=== PATIENT | male | born 1955 | race Caucasian/White ===

== ENCOUNTER 2023-02-09 09:30 | Outpatient (REF) | payer MEDICARE, SELFPAY | END 2023-02-09 09:31 | disposition home or self-care (01) | LOC: HO.HOSX 09:30 | PROVIDERS: Visit Provider Orthopaedic Surgery | DX: M17.11 Unilateral primary osteoarthritis, right knee (principal) | CPT/HCPCS: 73562 ==

== ENCOUNTER 2023-02-09 09:46 | Outpatient (AMB) | payer BC, SELFPAY ==
--- NOTE | 2023-02-09 10:05 | A.OFFVIS_ITS ---
Intake Intake Visit Reasons: Right knee pain Intake Note: The patient is a 67-year-old white male who presents with complaints of progressively worsening right knee pain. He describes his pain as sharp and severe in nature. His pain has gotten worse over the last few years in spite of continued non operative treatments. He has had cortisone injections which gave him minimal relief. He also underwent right knee arthroscopic surgery [place] [address] Haider. The patient states that he got temporary relief from that procedure. He has had cortisone injections in the past which gave him minimal relief. He has also had viscosupplementation injections which gave him fairly good relief. He wishes to hold off on total knee replacement surgery for as long as possible. He has done physical therapy exercises which aggravated his pain. 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 Physical Exam Const Other: Well-nourished well-developed very friendly male awake alert and oriented x3 in no acute distress Extrem Other: Bilateral lower extremity examination shows good capillary refill, no skin lesions noted, normal sensation light touch Right knee examination shows a minimal effusion, palpable crepitus with range of motion, pain with range of motion, range of motion from -3 degrees to 115 degrees, no instability Results Reviewed Results Reviewed: X-rays of the patient's right knee show severe joint space narrowing, subchondral sclerosis, osteophyte formation, no acute bony abnormalities Assessment & Plan Assessment & Plan (1) Right knee pain: Code(s): M25.561 - Pain in right knee (2) Arthritis of right knee: Code(s): M17.11 - Unilateral primary osteoarthritis, right knee Plan Arash is a 67-year-old white male who presents with progressively worsening right knee pain due to severe degenerative joint disease. I had a lengthy discussion with the patient regarding the treatment options. He wishes to hold off on total knee replacement surgery for as long as possible. I agree with this plan. The patient has had cortisone injections in the past which gave him minimal relief. Thus, I will see whether or not his insurance company will cover a another series of viscosupplementation injections. I will see the patient back once the injections are available. If he fails continued non operative treatments we will further discuss the risks and benefits of right total knee replacement surgery. The patient will follow-up as instructed. I spent 22 minutes in reviewing the patient's records and imaging studies, seeing the patient and documenting in the medical record. Orders: Orders XR knee RT 3V 02/09/23 M25.561 - Pain in right knee Coding Level of Care Code New Pt Level 2 (69230) Diagnoses Right knee pain M25.561 Arthritis of right knee M17.11
== END 2023-02-09 10:33 | disposition home or self-care (01) ==
PROVIDERS: Visit Provider Orthopaedic Surgery
DX: M25.561 Pain in right knee (principal); M17.11 Unilateral primary osteoarthritis, right knee
CPT/HCPCS: 99202

== ENCOUNTER 2023-02-23 08:21 | Outpatient (AMB) | payer MEDICARE, SELFPAY ==
--- NOTE | 2023-02-23 08:22 | MHC.OFFVIS ---
Intake Intake Visit Reasons: O/V rt knee durolane gel injection Intake Note: Arash is a 67 year old male who presents today for a right knee durolane gel injection. He reports his right knee pain as sharp in nature. He has had cortisone injections in the past which gave him minimal relief. He would like to hold off on right total knee replacement surgery for as long as possible. 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 Physical Exam Const Other: Well-nourished well-developed very friendly male awake alert and oriented x3 in no acute distress Extrem Other: Bilateral lower extremity examination shows good capillary refill, no skin lesions noted, normal sensation light touch Right knee examination shows a minimal effusion, palpable crepitus with range of motion, pain with range of motion, range of motion from -3 degrees to 115 degrees, no instability Office Procedures Joint Injection/Drain Joint Injection/Drain Primary Site: right knee Prep: site was prepped using aseptic technique Injected: 60 mg of (Durolane) and 1% plain lidocaine Procedure: The patient tolerated the procedure well Coding 59406 - Large joint Procedure code (CPT) selection complete Results Reviewed Results Reviewed: X-rays of the patient's right knee show joint space narrowing, subchondral sclerosis, no acute bony abnormalities Assessment & Plan Assessment & Plan (1) Arthritis of right knee: Code(s): M17.11 - Unilateral primary osteoarthritis, right knee Plan Mr. Landa presents with right knee pain due to degenerative joint disease. I had a lengthy discussion with the patient regarding the treatment options. The patient wishes to hold off on right total knee replacement surgery for as long as possible. I agree with this plan. The risks and benefits of a right knee Durolane viscosupplementation injection were discussed at length with the patient. The patient wished to proceed. He tolerated the injection well. He will continue with his activities as tolerated. He will follow up with me on an as-needed basis should his symptoms not plateau at an unacceptable level over the next few months. Feel free to call me at any time should questions regarding his orthopedic management arise. I spent 22 minutes in reviewing the patient's records and imaging studies, seeing the patient and documenting in the medical record. Orders: Orders AMB Joint Injection/Aspiration Today M17.11 - Unilateral primary osteoarthritis, right knee Coding Level of Care Code Est Pt Level 2 (57515) Diagnoses Arthritis of right knee M17.11 CPT Codes Coding - 32432 Large joint: 73918 - Large joint ([id number])
== END 2023-02-23 08:44 | disposition home or self-care (01) ==
PROVIDERS: Visit Provider Orthopaedic Surgery
DX: M17.11 Unilateral primary osteoarthritis, right knee (principal)
CPT/HCPCS: 20610

== ENCOUNTER → 2023-02-23 08:21 | Outpatient (BNVA) | payer MEDICARE, SELFPAY | PROVIDERS: Visit Provider Orthopaedic Surgery | DX: M17.11 Unilateral primary osteoarthritis, right knee (principal) | CPT/HCPCS: 20610; J7318 ==

== ENCOUNTER → 2023-06-20 11:07 | Outpatient (BNVA) | payer MEDICARE, SELFPAY | PROVIDERS: PCP Family Medicine; Visit Provider Orthopaedic Surgery ==

== ENCOUNTER 2023-07-20 10:07 | Outpatient (AMB) | payer MEDICARE, SELFPAY ==
--- NOTE | 2023-07-20 10:08 | MHC.OFFVIS ---
Vital Signs 07/20/23 10:13 Height 5 ft 11 in Weight 188 lb BMI 26.2 Intake Visit Reasons: Pre-Rt TKA 07/31/23 Intake Note: Arash is a 68-year-old white male who presents with complaints of progressively worsening right knee pain. He describes his pain as sharp and severe in nature. His pain has gotten worse over the last few years in spite of continued non operative treatments. He has had cortisone injections which gave him minimal relief. He also underwent right knee arthroscopic surgery in [address] Haider. The patient states that he got temporary relief from that procedure. He has had cortisone injections in the past which gave him minimal relief. He has also had viscosupplementation injections which gave him temporary good relief. He has done physical therapy exercises which aggravated his pain. The patient has difficulty walking even short distances because of his pain. At this point his right knee pain is interfering with his activities of daily living and his ability to sleep well through the night. Allergies No Known Allergies Allergy (Verified 07/20/23 10:11) Medication List - Last Reconciled 07/21/23 by Jose Antonio Acuna MD acetaminophen (Tylenol Extra Strength) 500 mg PO Q6H PRN lisinopril-hydrochlorothiazide 20-12.5 mg 1 tab PO BEDTIME PFSH Medical History Seborrheic dermatitis Osteoarthritis Lipoma of torso HTN (hypertension) Actinic keratoses Surgical History Hx of right knee surgery (~1999) Social History Household Members: Spouse Housing: House Alcohol intake: current Alcohol intake frequency: a few times a month Alcohol type: beer Patient Tobacco Use Status: Never used Tobacco Substance Use Type: Marijuana Current occupational status: employed 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 Physical Exam Vital Signs: BMI result Body Mass Index 26.2 Const Other: Well-nourished well-developed very friendly male awake alert and oriented x3 in no acute distress Extrem Other: Right knee examination shows a minimal effusion, palpable crepitus with range of motion, pain with range of motion, range of motion from -3 degrees to 115 degrees, no instability Results Reviewed Results Reviewed: X-rays of the patient's right knee show end-stage degenerative joint disease with grade 4 [id number] arthritis, subchondral sclerosis, osteophyte formation, no acute bony abnormalities Assessment & Plan Assessment & Plan (1) Arthritis of right knee: Code(s): M17.11 - Unilateral primary osteoarthritis, right knee Category: Medical Plan Mr. Landa presents with progressively worsening right knee pain due to end-stage degenerative joint disease. I had a lengthy discussion with the patient regarding the treatment options. At this point he has failed continued non operative treatments. The risks and benefits of right total knee replacement surgery were discussed at length with the patient. The patient wishes to proceed with surgery. nutrition services associate will be consulted following his surgery for home physical therapy and nursing. The patient will follow-up as instructed. Feel free to call me at any time should questions regarding his orthopedic management arise. I spent 21 minutes in reviewing the patient's records and imaging studies, seeing the patient and documenting in the medical record. Coding Level of Care Code Est Pt Level 3 (30059) Diagnoses Arthritis of right knee M17.11
[2023-07-20 10:13] VITALS: BMI 26.2
== END 2023-07-20 10:27 | disposition home or self-care (01) ==
PROVIDERS: PCP Family Medicine; Visit Provider Orthopaedic Surgery
DX: M17.11 Unilateral primary osteoarthritis, right knee (principal)
CPT/HCPCS: 99214

== ENCOUNTER → 2023-07-20 10:07 | Outpatient (BNVA) | payer MEDICARE, SELFPAY | PROVIDERS: PCP Family Medicine; Visit Provider Orthopaedic Surgery | DX: M17.11 Unilateral primary osteoarthritis, right knee (principal) | CPT/HCPCS: 99212 ==

== ENCOUNTER 2023-07-31 06:49 | Day surgery (SDC) | payer MEDICARE, SELFPAY ==
[2023-07-24 12:22] VITALS: BP 165/91; PULSE 79; RESP 16; O2SAT 98; BMI 25.7
[2023-07-24 14:42] LABS: MRSA Nasal PCR NEGATIVE (Negative); SA Nasal PCR POSITIVE (Negative)
[2023-07-31] VITALS (15 sets, daily range): BP systolic 96–151; BP diastolic 52–77; PULSE 62–88; RESP 15–18; TEMP 35.9–36.3; O2SAT 92–98; BMI 24.8; BMI 24.9
[2023-07-31] MEDS: Lactated Ringers 1,000 ML 100 ML IVCONT ×3 (07:51→23:39)
[2023-07-31] MEDS: vancomycin HCL 1,500 MG in 0.9 % Sodium Chloride 500 ML 333.33 MG IV ×2 (08:23→21:17)
--- NOTE | 2023-07-31 09:05 | HO.ANESPROP2 ---
Documented by User: Nikia Valenzuela NP 07/27/23 15:24 HPI - Anesthesia Eval Consult details Narrative: 68yo M for Right Knee Replacement Total, 07/31/23 Medically cleared by [facility] No recent illness No CP/SOB with minimal walking. Limitation r/t pain Initial BP at PAT elevated at 190/90. Retake 160/90. Per patient, BP usually up at MD appointments. Encouraged patient to monitor BP outside of medical setting, bring log DOS, and discuss with PCP. PMF Active Problems Active Problems: All Active Problems Arthritis of right knee (Acute) Right knee pain (Acute) Past Medical History Medical History Seborrheic dermatitis Osteoarthritis Lipoma of torso HTN (hypertension) Actinic keratoses Surgical History Surgical History Hx of right knee surgery (~1999) Social History Social History Household Members: Spouse Housing: House Are you a primary aged or disabled carer to a significant other at home: No Do you presently have visiting nurse or other home services: No Alcohol intake: current Alcohol intake frequency: a few times a month Alcohol type: beer Patient Tobacco Use Status: Never used Tobacco Use of substances other than those prescribed or required for medical reasons: Yes Substance Use Type: Marijuana Substance Use Frequency: Daily Have you been hit, kicked, punched, or otherwise hurt by someone within the past year? If so, by whom?: No Are you DNR?: No Advance Directives: No Advance Directives Information Provided: Yes Advance Directives on File: No Recently lost weight without trying: No Nutrition Risks: No Nutritional Risk Poor oral hygiene: No Current occupational status: employed Current occupation: [employer] Allergies Allergy/AdvReac Type Severity Reaction Status Date / Time No Known Allergies Allergy Verified 07/31/23 07:10 Home Medications ?Medication ?Instructions ?Recorded ?Confirmed ?Last Taken ?Type acetaminophen 500 mg tablet 1,500 mg PO DAILY 06/20/23 07/24/23 07/30/23 History (Tylenol Extra Strength) lisinopril 20 1 tab PO BEDTIME 04/30/24 06/03/24 06/09/24 History mg-hydrochlorothiazide 12.5 mg tablet Exam Height,Weight and Vital Signs: Height 5 ft 11 in Weight 83.461 kg Last Vital Signs Pulse 79 07/24/23 12:22 Resp 16 07/24/23 12:22 BP 190/90 H 07/24/23 12:22 Pulse Ox 98 07/24/23 12:22 O2 Del Method Room Air 07/24/23 12:22 Pertinent Lab Results Pertinent Lab Results: CBC, BMP, A1C from outside facility 06/2023 WNL Narrative Narrative: EKG 06/2023 NSR @ 72 Airway Mallampati Class: III TM Dist: >3cm Neck ROM: Full Loose/Missing/Broken Teeth: Yes (possible broken right lower molar, ) Heart: RRR Lungs: CTAB Assessment and Plan Assessment Anesthesia Assessment: Anesthesia Plan Discussed and PAT Visit Documented by User: Donna Morrison DO 07/31/23 10:39 [facility] Past Medical History Medical History Seborrheic dermatitis Osteoarthritis Lipoma of torso HTN (hypertension) Actinic keratoses Family History Family history of problems with anesthesia: No Surgical History Surgical History Hx of right knee surgery (~1999) History of Problems with Anesthesia: No Social History Social History Household Members: Spouse Housing: House Are you a primary aged or disabled carer to a significant other at home: No Do you presently have visiting nurse or other home services: No Alcohol intake: current Alcohol intake frequency: a few times a month Alcohol type: beer Patient Tobacco Use Status: Never used Tobacco Use of substances other than those prescribed or required for medical reasons: Yes Substance Use Type: Marijuana Substance Use Frequency: Daily Have you been hit, kicked, punched, or otherwise hurt by someone within the past year? 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 Meds Allergies Allergy/AdvReac Type Severity Reaction Status Date / Time No Known Allergies Allergy Verified 07/31/23 07:10 Home Medications ?Medication ?Instructions ?Recorded ?Confirmed ?Last Taken ?Type acetaminophen 500 mg tablet 1,500 mg PO DAILY 06/20/23 07/24/23 07/30/23 History (Tylenol Extra Strength) lisinopril 20 1 tab PO BEDTIME 06/20/23 07/24/23 07/30/23 History mg-hydrochlorothiazide 12.5 mg tablet Exam Exam Date and Time: July 31, 2023900 Height,Weight and Vital Signs: Height 5 ft 11 in Weight 83.461 kg Last Vital Signs Pulse 79 07/24/23 12:22 Resp 16 07/24/23 12:22 BP 190/90 H 07/24/23 12:22 Pulse Ox 98 07/24/23 12:22 O2 Del Method Room Air 07/24/23 12:22 Height 5 ft 11 in Weight 80.649 kg Vital Signs Pulse Rate 79 07/24/23 12:22 Respiratory Rate 16 07/24/23 12:22 Blood Pressure 165/91 H 07/24/23 12:22 Pulse Oximetry 98 07/24/23 12:22 Oxygen Delivery Method Room Air 07/24/23 12:22 Temperature 97.3 F 07/31/23 07:15 Pulse Rate 74 07/31/23 07:15 Respiratory Rate 15 07/31/23 07:15 Blood Pressure 147/77 H 07/31/23 07:15 Pulse Oximetry 98 07/31/23 07:15 Oxygen Delivery Method Room Air 07/31/23 07:15 Airway Mallampati Class: II TM Dist: >3cm Neck ROM: Full Loose/Missing/Broken Teeth: Yes (broken right lower molar) Heart: S1S2 Assessment and Plan Assessment Anesthesia Assessment: Anesthesia Plan Discussed and Chart Reviewed Final Anesthetic Review Family History of Problems with Anesthesia: No History of Problems with Anesthesia: No NPO: Yes ASA Class: II Final Preanesthetic Review: No Changes in Pt Med Stat, Meds/Allgs Chart Reviewed, Consent Obtained/Reviewed and Anes Risks/Benef Reviewed Patient Risk: Low Procedure Risk: Intermediate Anesthetic Plan Anesthetic Plan: Spinal, Regional Block (right adductor canal and right ipack blocks) and Agree w/ Assess. and Plan Disposition: Standard PACU
--- NOTE | 2023-07-31 11:57 | PHA.MEDREC ---
Pharmacy Consult ? Medication Reconciliation Pharmacy has completed the medication reconciliation. reviewed med rec done by nursing.
--- NOTE | 2023-07-31 12:49 | PM.OP ---
Brief Operative Note Date of Service: 07/31/23 Pre-op diagnosis: Right knee degenerative joint disease Post-op diagnosis: same Procedure: Right total knee arthroplasty Implants: [place] [employer] cemented posterior stabilized total knee arthroplasty with a femoral component size 5 right, tibial component size 5, polyethylene liner size 5 with 13 mm of thickness, an asymmetric patellar component size 32 with 10 mm of thickness Surgeon: Jose Antonio Acuna MD Anesthesia: regional and spinal Was an Vice President Talent Management used for this Procedure?: Yes Vice President Talent Management: Hannah Miles Estimated blood loss (mL): 200 Pathology: other (Bony fragments from the right femur, tibia and patella) Condition: stable Disposition: PACU
--- NOTE | 2023-07-31 12:51 | P.OP_ITS ---
Operative Note Operative Note Date of Service: 07/31/23 Narrative: After the patient was identified as Arash Landa and his right knee was initialed by myself the patient was brought to the holding area where a right leg nerve block was performed by the anesthesiologist in routine fashion. The patient was then brought to the operating room where conscious sedation and spinal anesthesia were performed by the anesthesiologist in routine fashion. Because of the patient's history of seborrheic dermatitis he was given both IV Ancef and IV vancomycin preoperatively for infection prophylaxis. The patient's right lower extremity was prepped and draped in sterile fashion. A formal time- out was completed. The patient's right knee was placed onto a small bump to produce 30? of knee flexion during exposure. A #10 scalpel blade was used to make a midline incision extending 1 handbreadth proximal and distal to the patella. A second #10 scalpel blade was used to dissect the subcutaneous tissues down to the extensor mechanism. The subcutaneous flaps were maintained as thick as possible. A medial parapatellar arthrotomy was then performed using a #10 scalpel blade. The arthrotomy was begun just medial to the patellar tendon. The arthrotomy was continued 1 cm medial to the patella and then 5 mm into the medial aspect of the quadriceps tendon. The infrapatellar fat pad was partially excised to help with exposure. The soft tissue retinaculum was raised one-half of the way around the medial aspect of the proximal tibia. The patella was everted and the knee was flexed to 90?. There was no injury to the patellar tendon or its insertion onto the tibial tubercle. A drill bit was introduced into the distal aspect of the femur with a starting point 1 cm anterior to the origin of the posterior cruciate ligament. The intramedullary alignment dany was put into place. The distal alignment guide was set for a 5 degree valgus cut. The distal cutting block was put into place and was held with 4 pins. The intramedullary alignment dany was removed. Soft tissues were retracted in the distal femoral cut was made using a sagittal saw. The distal aspect of the femur measured to be a size 5 right component. Two drill holes were placed into the distal aspect of the femur marking 3? of external rotation. The distal cutting block was impacted into place and was held with 2 pins. Soft tissues were retracted and the 4 distal femoral cuts were made using a sagittal saw. Final notching and drilling of the distal aspect of the femur were performed in routine fashion. The trial femoral component was impacted into place. The knee was taken through a full range of motion. The patella tracked well. The patella was everted and the knee was flexed to 90?. The trial component was removed and our attention was directed to the proximal tibia. The medial and lateral menisci were removed using a #10 scalpel blade. A small rim of the medial meniscus was left intact to help prevent injury to the medial collateral ligament. A drill bit was then introduced into the proximal tibia with a starting point midway from medial to lateral and one-third of the way posteriorly. The intramedullary alignment dany was put into place. The proximal tibial cutting guide was placed over the alignment dany in line with the 2nd toe. The guide was held in place using 3 pins. The intramedullary alignment dany was removed. Soft tissues were retracted and the proximal tibial cut was made using a sagittal saw. The proximal tibia measured to be a size 5 component. The tibial tray was put into place with a 13 mm liner. The femoral component was impacted into place. The knee was taken through a full range of motion. There was full flexion and full extension. There was no instability with varus or valgus stress testing with the knee in flexion or extension. The patella tracked well with no medially directed force. The rotation of the tibial tray was marked using electrocautery with the knee in extension. The patella was everted and the knee was flexed to 90?. All trial components were removed. The tibial tray was placed onto the proximal tibia in line with the electrocautery neo. The tray was held in place using 3 pins. Final broaching of the proximal tibia was performed in routine fashion. The trial liner and trial femoral component were put into place. The knee was brought into extension and our attention was directed to the patella. The patella measured 25 mm in thickness. The patellar resection guide was set for a 10 mm resection. Soft tissues were retracted and the patella cut was made using a sagittal saw. The remaining patella measured 15 mm in thickness. The undersurface of the patella was measured to be a size 32 asymmetric component. Three drill holes were placed into the undersurface of the patella in routine fashion. The trial component was put into place. The knee was taken through a full range of motion. The patella tracked well. The patella was everted and the knee was flexed to 90?. All trial components were removed. The knee was once again brought into extension and placed onto a small bump. The knee joint was irrigated with copious amounts of normal saline solution via pulse lavage while the cement was mixed. The patella was everted and the knee was flexed to 90?. A small amount of cement was placed along the posterior aspects of the tibial and femoral components. Cement was then pressurized into the proximal tibia. The tibial component was impacted into place. Any excess cement was removed. The polyethylene liner was then impacted into place. Cement was then pressurized into the distal aspect of the femur. A small amount of cement was placed into the intramedullary canal to help reduce bleeding. The femoral component was impacted into place. Any excess cement was removed. The knee was then brought into extension. Cement was pressurized into the undersurface of the patella. The patellar component was put into place and was held with a patella clamp. Any excess cement was removed. Once the cement had hardened the patellar clamp was removed. The knee was taken through a full range of motion. There was full flexion and extension. There was no instability with varus or valgus stress testing with the knee in flexion or extension. The patella tracked well with no medially directed force. The knee joint was irrigated with copious amounts of normal saline solution via pulse lavage. Any significant bleeding vessels were coagulated. The patient's right knee was placed onto a small bump. The arthrotomy was closed with #2 Ethibond [id number] interrupted suture as well as #1 Vicryl [id number] interrupted suture. The wound was once again irrigated. The subcutaneous tissues were closed with 0 Vicryl and 2-0 Vicryl interrupted sutures. The skin was closed with skin mariella. Dry sterile dressing and Eddie bandages were placed over the patient's right knee. The patient was awake and alert. The patient was transferred to the recovery room in stable condition.
[2023-07-31] MEDS: methocarbamoL 500 MG TABLET PO ×2 (14:35→21:17)
[2023-07-31] MEDS: Celecoxib 200 MG CAPSULE PO ×2 (14:35→21:17)
[2023-07-31] MEDS: oxyCODONE HCl ER 10 MG TAB.ER.12H PO ×2 (14:35→21:18)
[2023-07-31] MEDS: oxyCODONE HCl Immed Release 5 MG TABLET 10 MG PO (14:59)
[2023-07-31] MEDS: Acetaminophen 325 MG TABLET 650 MG PO (14:59)
[2023-07-31] MEDS: 0.9 % Sodium Chloride Flush 3 ML SYRINGE IVFLUSH (15:54)
[2023-07-31] MEDS: ceFAZolin Sodium/Dextrose,Iso 2 GM/50 ML PIGGYBACK IV (15:54)
[2023-07-31] MEDS: Aspirin 325 MG TABLET PO ×2 (17:48→21:16)
[2023-07-31] MEDS: lisinopriL 20 MG TABLET PO (21:16)
[2023-07-31] MEDS: hydroCHLOROthiazide 12.5 MG TABLET PO (21:17)
[2023-07-31] MEDS: Gabapentin 100 MG CAPSULE PO (21:17)
[2023-08-01] MEDS: ceFAZolin Sodium/Dextrose,Iso 2 GM/50 ML PIGGYBACK IV ×2 (00:42→08:15)
[2023-08-01 03:38] VITALS: BP 110/65; PULSE 72; RESP 16; TEMP 36.4; O2SAT 95
[2023-08-01 06:08] LABS: MANUAL DIFF FLAG NO
[2023-08-01 06:27] LABS: Anion Gap 12 (12-20); Blood Urea Nitrogen 19 mg/dL (9-16); Carbon Dioxide 24 mmol/L (22-29); Chloride 106 mmol/L (96-108); Creatinine Clr Calc Pharmacy 75.7; Estimated Glomerular Filt Rate > 60; Glucose Fasting 128 mg/dL (60-99); Potassium 4.1 mmol/L (3.3-5.1); Sodium 138 mmol/L (135-145)
[2023-08-01 06:28] LABS: Basophils Percent Auto 0.1 % (0-2); Hematocrit 37.8 % (42.0-52.0); Hemoglobin 13.2 g/dl (14.0-18.0); Imm Gran Abs Auto 0.11 X10*3/uL (0.00-0.03); Imm Gran Pct Auto 0.8 % (0.0-0.4); Lymphocytes Percent Auto 6.8 % (20-40); Mean Corpuscular HGB Conc 34.9 g/dl (31.0-36.0); Mean Corpuscular Hemoglobin 35.3 pg (27.0-33.0); Mean Corpuscular Volume 101.1 fL (80.0-98.0); Mean Platelet Volume 9.1 fL (9.4-12.4); Monocytes Absolute Auto 0.7 X10*3/uL (0.1-1.2); Neutrophils Absolute Auto 12.6 x10*3/uL (2.0-8.3); Neutrophils Percent Auto 87.3 % (45-73); Platelet Count 236 X10*3/uL (160-400); Red Blood Count 3.74 X10*6/uL (4.60-5.80); Red Cell Distribution Width 12.4 % (11.0-16.0); White Blood Count 14.5 X10*3/uL (4.8-10.8)
[2023-08-01 07:15] VITALS: BP 140/67; PULSE 73; RESP 18; TEMP 36; O2SAT 97
--- NOTE | 2023-08-01 07:51 | PM.DS ---
DS: Providers Provider Date of Service: 08/01/23 Primary care physician: Franki Gutiérrez MD DS: Transfer Hospital Acceptance Reason for Transfer: The patient underwent a successful Right total knee arthroplasty on 07/31/[address] Acuna, was transferred to PACU and then to the floor to recover. During their stay, their vitals were stable, afebrile at 96.8. Labs were unremarkable, H/H 13.2/37.8. POD 1 he was started on ASA 325mg tabs po bid for DVT ppx, they also received Physical Therapy services twice a day. Physical therapy should include gait training, ROM to tolerance and quad strength. He is WBAT. Prior to discharge, his dressing was clean dry and intact. The Aquacel dressing should remain intact and dry at all times. Any concerns with the dressing, please contact orthopedic office. No showering. The plan is to be discharged home with vna DS: Summary Time Attestation Discharge Coordination Time (in mins): 30 Quality: Safe Use of Opioids Does Pt have an Active Cancer Diagnosis on the Problem List?: No Quality: Stroke Does the patient have a stroke diagnosis?: No Physical Exam Vital Signs: Vital Signs: Last Vital Signs Temp 96.8 F 08/01/23 07:15 Pulse 73 08/01/23 07:15 Resp 18 08/01/23 07:15 BP 140/67 H 08/01/23 07:15 Pulse Ox 97 08/01/23 07:15 O2 Del Method Room Air 08/01/23 07:15 BMI result Body Mass Index 24.9 Const: General: cooperative, healthy appearing and no acute distress Resp: Effort & Inspection: normal respiratory effort and able to speak in complete sentences Cardio: Rate: regular rate Peripheral pulses: Peripheral pulses 2+ throughout GI: Palpation (GI): Soft to palpation Skin: General skin exam: no rashes or lesions noted Extrem: Other: bandage clean dry and intact. Denys intact. No erythema or joint effusion. Calf supple nontender. Neurovascularly intact. DS: Data Data Completed and Pending Pending studies at discharge: Pending at discharge 07/31/23 10:42 Surgical [PTH] Routine Labs on day of discharge: Laboratory Results - last 24 hr 08/01/23 05:32 WBC 14.5 H RBC 3.74 L Hgb 13.2 L Hct 37.8 L MCV 101.1 H MCH 35.3 H MCHC 34.9 RDW 12.4 Plt Count 236 MPV 9.1 L Immature Gran % (Auto) 0.8 H Neut % (Auto) 87.3 H Lymph % (Auto) 6.8 L Trinity % (Auto) 5.0 Eos % (Auto) 0.0 Baso % (Auto) 0.1 Lymph # (Auto) 1.0 L Trinity # (Auto) 0.7 Eos # (Auto) 0.0 Baso # (Auto) 0.0 Abs Immat Gran (auto) 0.11 H Absolute Neuts (auto) 12.6 H Absolute Nucleated RBC 0.000 Nucleated RBC % (auto) 0.0 Sodium 138 Potassium 4.1 Chloride 106 Carbon Dioxide 24 Anion Gap 12 BUN 19 H Creatinine 0.98 Estim Creat Clear Calc 75.7 Estimated GFR > 60 Fasting Glucose 128 H Calcium 9.0 Discharge Plan Discharge Patient Disposition: Home, Self-Care Referrals: Hannah Miles PA-C [Physician Marketing Support Manager] - 2 Weeks (08/17/23 10:15 [facility] Hannah Miles PA-C) Discharge Medications: New methocarbamol 500 mg Tablet 500 mg PO TID 7 Days Qty: 21 0RF celecoxib 200 mg Capsule 200 mg PO BID 30 Days Qty: 60 0RF sennosides [Senna Lax] 8.6 mg Tablet 17.2 mg PO BEDTIME PRN (Reason: Constipation) 14 Days Qty: 14 0RF acetaminophen 325 mg Tablet 650 mg PO Q6H PRN (Reason: Pain, Mild (Pain Scale 1-3)) 30 Days Qty: 240 0RF aspirin 325 mg Tablet 325 mg PO BID 30 Days Qty: 60 0RF gabapentin 100 mg Capsule 100 mg PO BEDTIME 7 Days Qty: 7 0RF oxycodone 5 mg Tablet 5 mg PO Q4H PRN (Reason: Pain, Moderate(Pain Scale 4-6)) 7 Days Qty: 42 0RF Rx Instructions: Partial Fill upon patient request. Continued (DME) raymundo Ok [facility] [place] [facility] See Rx Instructions .ROUTE .MEDSUPPLY Qty: 1 0RF Rx Instructions: Folding front wheeled walker lisinopril-hydrochlorothiazide 20-12.5 mg tablet 1 tab PO BEDTIME acetaminophen [Tylenol Extra Strength] 500 mg tablet 1,500 mg PO DAILY Discharge Orders: Discharge Order (Routine); Ordered 08/01/23 Ordered By: Celia Molina Diet: Regular diet Activity on Discharge: Use cane or walker Activity Restrictions/Additional Instructions: Physical Therapy for Total knee arthroplasty: WBAT, gait training, ROM 0-12, quad strength Limit stair climbing No showering, no tub bath-keep dressing clean, dry and intact No driving x6 weeks Continue Aspirin twice a day x 6 weeks Follow up with [facility] in 2 weeks: Print Language: Mozambican
[2023-08-01] MEDS: 0.9 % Sodium Chloride Flush 3 ML SYRINGE IVFLUSH (08:14)
[2023-08-01] MEDS: Aspirin 325 MG TABLET PO (08:15)
[2023-08-01] MEDS: oxyCODONE HCl ER 10 MG TAB.ER.12H PO (08:16)
[2023-08-01] MEDS: Celecoxib 200 MG CAPSULE PO (08:16)
[2023-08-01] MEDS: methocarbamoL 500 MG TABLET PO (08:16)
--- NOTE | 2023-08-01 08:29 | HO.POSTANES ---
Post Anesthesia Evaluation Post Anesthesia Evaluation Date of Service: 08/01/23 Vital Signs: Vital Signs Temp Pulse Resp BP Pulse Ox O2 Del Method 08/01/23 07:15 96.8 F 73 18 140/67 H 97 Room Air 08/01/23 03:38 97.6 F 72 16 110/65 95 Room Air 07/31/23 21:17 151/73 H 07/31/23 21:16 151/73 H Anesthesia: General LMA Mental Status: Awake Pain Control: Satisfactory Nausea/Vomiting: None Hydration: Adequate Anesthesia-Related Issues: No Anes. Related Issues
--- NOTE | 2023-08-01 09:40 | P.F2F_ITS ---
Service Date Service Date: 08/01/23 Encounter Date of encounter: 08/01/23 Reasons for Services Signs and symptoms assessed: Weakness, poor balance, poor gait mechanics Reason for physical therapy: home safety and mobility, therapeutic exercises, restore joint function, gait/transfer training, ADL training and energy conservation Reason for occupational therapy: home safety and mobility, therapeutic exercises, restore joint function, gait/transfer training, ADL training and energy conservation Homebound: Leaving the home is medically contraindicated at this time without the asist of a device and/or another person due th the listed conditions above and below. Reason homebound: unsteady gait / fall risk, pain with ambulation, poor balance / fall risk and unable to drive Homebound supporting statement: Pt. is considered home bound due to recent surgery. Unable to drive, poor balance, poor gait mechanics. Certification: Based on the above findings, I certify that this patient is confined to the home and needs intermittent retirement care, physical therapy and/or speech therapy, or continues to need occupational therapy. The patient is under my care, and I have initiated the establishment of the plan of care. The patient will be followed by a physician who will periodically review the plan of care. Time Spent With Patient Time: Total time managing care of this patient today ____ minutes.
[2023-08-01] MEDS: Lactated Ringers 1,000 ML 100 ML IVCONT (09:45)
[2023-08-01 10:03] VITALS: BP 140/67; PULSE 73; O2SAT 97
--- NOTE | 2023-08-01 10:32 | MHC.CM.PN ---
Addendum entered by Mariluz Parham 08/01/23 10:39: VNA services set up by Ortho Nurse Navigator. Original Note: IMM 08/01/23 DX OA S/P Surgical intervention. He lives with family He is independent with all functional mobility. He is discharged to home today. Demond MASSEY will provide home services. Patient has arranged for transportation home.
[2023-08-01 11:35] VITALS: BP 140/67; PULSE 73; O2SAT 97
--- NOTE | 2023-08-01 12:29 | PC.NURSE ---
Clarified discharge with KEIKO Lyn,patient can be discharged
[2023-08-01] MEDS: oxyCODONE HCl Immed Release 5 MG TABLET 10 MG PO (12:48)
== END 2023-08-01 14:03 | disposition home health service (06) ==
LOC: HO.SSS 06:50 → HO.S3 11:27
PROVIDERS: Physician Assistant; PCP Family Medicine; Visit Provider Orthopaedic Surgery
PROC: (CPT 27447; principal; 2023-07-31 10:00)
DX: M17.11 Unilateral primary osteoarthritis, right knee (principal); I10 Essential (primary) hypertension; Z79.899 Other long term (current) drug therapy
CPT/HCPCS: 27447; 36415; 80048; 85025; 86850; 86900; 86901; 87640; 87641; 88305; 88311; 97110; 97116; 97161; C1776; J0131; J0665; J0690; J1100; J2250; J2371; J2704; J2795; J3010; J3370; J3371; J7120

== ENCOUNTER → 2023-07-31 06:49 | Outpatient (BNV) | payer MEDICARE, SELFPAY | PROVIDERS: PCP Family Medicine; Visit Provider Orthopaedic Surgery | DX: Z47.1 Aftercare following joint replacement surgery (principal); Z96.651 Presence of right artificial knee joint | CPT/HCPCS: 27447; 99024; G0180 ==

== ENCOUNTER 2023-08-17 09:45 | Outpatient (REF) | payer MEDICARE, SELFPAY ==
--- NOTE | ~2023-08-17 | XR_ITS ---
EXAMINATION: XR KNEE, RIGHT CLINICAL INFORMATION: Pain in unspecified knee. COMPARISON: 02/09/2023. TECHNIQUE: AP standing view as well as lateral and sunrise views of the right knee. FINDINGS: Status post interval right knee total arthroplasty with expected postsurgical changes including anterior mariella, soft tissue swelling and joint effusion. Hardware appears intact. AP standing view of the left knee demonstrates diffuse demineralization with moderate narrowing of the medial compartment and small marginal osteophytes. XR/XR knee RT 3V IMPRESSION: Status post interval right knee total arthroplasty with expected postsurgical changes.
== END 2023-08-17 09:46 | disposition home or self-care (01) ==
LOC: HO.HOSX 09:45
PROVIDERS: Visit Provider Physician Assistant
DX: M25.561 Pain in right knee (principal); Z47.1 Aftercare following joint replacement surgery; Z96.651 Presence of right artificial knee joint
CPT/HCPCS: 73562; 99212

== ENCOUNTER 2023-08-17 10:04 | Outpatient (AMB) | payer MEDICARE, SELFPAY ==
--- NOTE | 2023-08-17 10:30 | MHC.OFFVIS ---
Intake Visit Reasons: PO-Rt TKA 07/31/23 Intake Note: Arash is a 68 year old male who presents today for a post op appointment s/p Rt TKA 07/31/23 Patient reports that he is doing well. denys removed & steri strips applied Allergies No Known Allergies Allergy (Verified 08/17/23 10:30) HPI HPI PO-Rt TKA 07/31/23 DR: Details: 68-year-old male who presents in the office today 17 days status post right total knee arthroplasty, which was performed on 07/31/[address] Acuna. ? ? While in the office today, the patient reports he is doing well. ? 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 [place] are intact. No surrounding erythema or drainage. No signs of infection. ROM is 0-90 degrees. NVI.? Assessment & Plan Assessment & Plan (1) Status post right knee replacement: Onset Date: ~07/31/23 Comment: Dr. Acuna Code(s): Z96.651 - Presence of right artificial knee joint Category: Surgical Plan Mr. Landa is a 68-year-old male who presents in the office today 17 days status post right total knee arthroplasty, which was performed on 07/31/[address] Acuna. ? ? While in the office today, the patient reports he is doing well.? ? Denys were removed and steri-stripes were applied. I sent a prescription for an antibiotic prophylactically for possible dental work in the future. However, the patient was educated they should not have any major dental work for the first 3 months post op after a right total knee arthroplasty.?Follow-up will be in [address] Acuna, or sooner if needed.? ? X-rays of the right knee which were obtained while in the office today and were reviewed by me, Hannah Miles PA-C, revealed intact orthopedic hardware with routine healing. Orders: Orders XR knee RT 3V Today M25.569 - Pain in unspecified knee Medications: New amoxicillin 2,000 mg (4 x 500 mg) PO ONCE 4 tabs 0RF take 4 tabs by mouth 1 hour prior to dental ppx 1 day Patient Instructions: Scribed by Christen Barbosa medical authorization specialist, for Hannah Miles PA-C on 08/17/2023 at 10:04 am, EST.? Coding Level of Care Code Global (82455) Diagnoses Status post right knee replacement Z96.651
== END 2023-08-17 11:19 | disposition home or self-care (01) ==
LOC: HO.HOS 10:04
PROVIDERS: PCP Family Medicine; Visit Provider Physician Assistant
DX: Z96.651 Presence of right artificial knee joint (principal)
CPT/HCPCS: 99024

== ENCOUNTER 2023-09-12 09:14 | Outpatient (AMB) | payer MEDICARE, SELFPAY ==
--- NOTE | 2023-09-12 09:18 | A.OFFVIS_ITS ---
Intake Visit Reasons: PO-Rt TKA 07/31/23 Intake Note: Arash is a 68 year old male who presents with complaints of mild intermittent discomfort in his right knee after undergoing right total knee replacement surgery on 07/31/2023. The patient has recently begun physical therapy at [facility]. He denies any fevers or chills. He does walk with a cane when he is out of his home. He takes Tylenol as needed for his discomfort. Allergies No Known Allergies Allergy (Verified 09/12/23 09:18) Medication List - Last Reconciled 09/12/23 by Jose Antonio Acuna MD acetaminophen 650 mg (2 x 325 mg) PO Q6H PRN 30 days acetaminophen (Tylenol Extra Strength) 1,500 mg PO DAILY amoxicillin 2,000 mg (4 x 500 mg) PO ONCE 1 day lisinopril-hydrochlorothiazide 20-12.5 mg 1 tab PO BEDTIME oxycodone 5 mg PO Q4H PRN 7 days sennosides (Senna Lax) 17.2 mg (2 x 8.6 mg) PO BEDTIME PRN 14 days walker Folding front wheeled walker [facility] Medical History (Updated 09/12/23 @ 14:22 by Jose Antonio Acuna MD) Right knee pain Seborrheic dermatitis Osteoarthritis Lipoma of torso HTN (hypertension) Actinic keratoses Surgical History Hx of right knee surgery (~1999) Social History Household Members: Family Housing: House Are you a primary respiratory care instructor to a significant other at home: No Do you presently have visiting nurse or other home services: No Alcohol intake: current Alcohol intake frequency: a few times a month Alcohol type: beer Patient Tobacco Use Status: Never used Tobacco Substance Use Type: Marijuana service: No Current occupational status: employed 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 Landa continues to do well after undergoing right total knee replacement surgery on 07/31/2023. He will continue going to formal physical therapy for now. He does know to take antibiotics before any dental work. He will contact me prior to his follow-up appointment in 6 weeks should any questions or concerns arise. Feel free to call me at any time should questions regarding his orthopedic management arise. Coding Level of Care Code Global (95091) Diagnoses Right knee pain M25.561
== END 2023-09-12 09:38 | disposition home or self-care (01) ==
PROVIDERS: PCP Family Medicine; Visit Provider Orthopaedic Surgery
DX: M25.561 Pain in right knee (principal)
CPT/HCPCS: 99024

== ENCOUNTER → 2023-09-12 09:14 | Outpatient (BNVA) | payer MEDICARE, SELFPAY | PROVIDERS: PCP Family Medicine; Visit Provider Orthopaedic Surgery | DX: Z47.1 Aftercare following joint replacement surgery (principal); Z96.651 Presence of right artificial knee joint | CPT/HCPCS: 99212 ==

== ENCOUNTER 2023-10-25 08:52 | Outpatient (AMB) | payer MEDICARE, SELFPAY ==
--- NOTE | 2023-10-25 08:56 | A.OFFVIS_ITS ---
Vital Signs 10/25/23 08:57 Height 5 ft 11 in Weight 178 lb BMI 24.8 Intake Visit Reasons: OV-Rt TKA 07/31/23-follow up Intake Note: Mr. Landa presents with complaints of mild intermittent discomfort in his right knee after undergoing right total knee replacement surgery on 07/31/2023. He continues going to formal physical therapy. Denies any fevers or chills. He takes Tylenol which gives him fairly good relief. He would like to return to work. Allergies No Known Allergies Allergy (Verified 10/25/23 08:59) Medication List - Last Reconciled 10/25/23 by Jose Antonio Acuna MD acetaminophen (Tylenol Extra Strength) 1,500 mg PO DAILY acetaminophen 650 mg (2 x 325 mg) PO Q6H PRN 30 days amoxicillin 2,000 mg (4 x 500 mg) PO ONCE lisinopril-hydrochlorothiazide 20-12.5 mg 1 tab PO BEDTIME oxycodone 5 mg PO Q4H PRN 7 days sennosides (Senna Lax) 17.2 mg (2 x 8.6 mg) PO BEDTIME PRN 14 days walker Folding front wheeled walker [facility] Medical History (Updated 09/12/23 @ 14:22 by Jose Antonio Acuna MD) Right knee pain Seborrheic dermatitis Osteoarthritis Lipoma of torso HTN (hypertension) Actinic keratoses Surgical History Hx of right knee surgery (~1999) Social History Household Members: Family Housing: House Are you a primary life care planner to a significant other at home: No Do you presently have visiting nurse or other home services: No Alcohol intake: current Alcohol intake frequency: a few times a month Alcohol type: beer Patient Tobacco Use Status: Never used Tobacco Substance Use Type: Marijuana service: No Current occupational status: employed 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 Landa continues to do very well after undergoing right total knee replacement surgery on 07/31/2023. He will continue going to formal physical therapy for now. He will gradually transition to a home exercise program. I have cleared him to return to work on November 05. He does know to take antibiotics before any dental work. He will contact me prior to his follow-up appointment in 3 months should any questions or concerns arise. Feel free to call me at any time should questions regarding his orthopedic management arise. I spent 20 minutes in reviewing the patient's records and imaging studies, seeing the patient and documenting in the medical record. Medications: New amoxicillin Take four caps (2,000 mg) one hour before any dental work 2,000 mg (4 x 500 mg) PO ONCE 20 caps 3RF Coding Level of Care Code Est Pt Level 3 (88310) Complex EM visit Add On G2211 Diagnoses Right knee pain M25.561
[2023-10-25 08:57] VITALS: BMI 24.8
== END 2023-10-25 09:10 | disposition home or self-care (01) ==
PROVIDERS: PCP Family Medicine; Visit Provider Orthopaedic Surgery
DX: M25.561 Pain in right knee (principal)
CPT/HCPCS: 99024

== ENCOUNTER → 2023-10-25 08:52 | Outpatient (BNVA) | payer MEDICARE, SELFPAY | PROVIDERS: PCP Family Medicine; Visit Provider Orthopaedic Surgery | DX: Z47.1 Aftercare following joint replacement surgery (principal); Z96.651 Presence of right artificial knee joint | CPT/HCPCS: 99212 ==

== ENCOUNTER 2024-01-23 09:58 | Outpatient (REF) | payer MEDICARE, SELFPAY | END 2024-01-23 09:59 | disposition home or self-care (01) | LOC: HO.HOSX 09:58 | PROVIDERS: Visit Provider Orthopaedic Surgery | DX: Z13.89 Encounter for screening for other disorder (principal) ==

== ENCOUNTER 2024-01-24 07:36 | Outpatient (REF) | payer MEDICARE, SELFPAY ==
--- OUTSIDE RECORDS SUMMARY | 2024-01-30 16:24 | XMS_ITS | Continuity of Care Document ---
Author Organization [facility] Address [address] [place] [address]- Care Team Providers Care Machine Tack Puller Name Role Phone Franki Gutiérrez MD Primary Care Physician Encounter [facility] Date(s): 12/13/23 - 01/12/[address] [id number] Attending Physician: Kamilah Tillman Admitting Physician: AdmKamilah nickerson Referring Physician: trKamilah Encounter Type: Triage Allergies, Adverse Reactions, Alerts No Known Allergies Immunizations Given and Recorded Vaccine Date Status Refusal Reason influenza virus vaccine, inactivated 12/13/23 Give n influenza virus vaccine, inactivated 01/04/23 Ivan rded influenza virus vaccine, inactivated 12/20/19 Ivan rded influenza virus vaccine, inactivated 01/10/19 Ivan rded influenza virus vaccine, inactivated 01/01/18 Give n influenza virus vaccine, inactivated 01/23/17 Give n influenza virus vaccine, inactivated 02/03/16 Give n influenza virus vaccine, inactivated 12/31/14 Give n influenza virus vaccine, inactivated 1 02/28/12 Gi geovanna SARS-CoV-2(COVID-19)mRNA-LNP vac([id number]) 05/10/23 Given SARS-CoV-2 (COVID-19) mRNA-1273 vaccine 03/17/21 R ecorded tetanus-diphtheria toxoids (Td) 08/26/20 Given SARS-CoV-2 (COVID-19) mRNA BNT-162b2 vac 05/22/20 Recorded SARS-CoV-2 (COVID-19) mRNA BNT-162b2 vac 04/29/20 Recorded tetanus/diphtheria/pertussis, acel(Tdap) 2 08/13/09 Given 1Admin Note: vis given 2Admin Note: INFORMATION PAPER GIVEN AND WAIVER SIGNED Medications hydrochlorothiazide-lisinopril 12.5 mg-20 mg oral tablet 1 tablet, By Mouth, Daily at bedtime, # 90 tablet, 3 Refills, Maintenance, 12/13/23 10:52:00 AM EDT, [id number], 1 tablet By Mouth Daily at bedtime, 176.6, cm, 12/13/23 10:32:00 EDT, Height, 83.1, kg, 12/13/23 10:32:00 EDT, Dry Weight Start Date: 12/13/23 Status: Ordered Quantity: 90.0 Unit: tablet Repeat number: 4 Problem List Condition Confirmation Course Effective Dates Status H ealth Status Informant Benign essential hypertension Confirmed Active Lipoma of torso Confirmed Active Actinic keratoses Confirmed Active Osteoarthritis of right knee Confirmed Active Seborrheic dermatitis Confirmed Active Social History Social History Type Response Smoking Status Never (less than 100 in lifetime) entered on: 08/26/20 Sex Sex Representation Male (finding) Patient Care team information Care Team Personnel Name: Franki Gutiérrez MD Position: [facility] Physician - Primary Care Member Role: PCP [address]: [address] [place] [address]- Telecom: Care Team Related Persons Name: DARCIE MUNIZ Name: RACHEL MUNIZ Insurance Providers Guarantor name: RACHEL MUNIZ Health [facility] Information #: 1 Payer: NOLAN Member Number: NOLAN Policy Number: NA Group Number: NA
== END 2024-01-24 07:37 | disposition home or self-care (01) ==
LOC: HO.HOSX 07:36
PROVIDERS: Visit Provider Orthopaedic Surgery
DX: M25.561 Pain in right knee (principal)
CPT/HCPCS: 73562; 99212

== ENCOUNTER 2024-01-24 08:43 | Outpatient (AMB) | payer MEDICARE, SELFPAY ==
[2024-01-24 08:51] VITALS: BMI 24.8
--- NOTE | 2024-01-24 08:51 | MHC.OFFVIS ---
Vital Signs 01/24/24 08:51 Height 5 ft 11 in Weight 178 lb BMI 24.8 Intake Visit Reasons: OV-Rt TKA 07/31/23-follow up Intake Note: Arash is a 68 year old male who presents with complaints of mild intermittent discomfort in his right knee after undergoing right total knee replacement surgery on 07/31/2023. He continues with his physical therapy exercises. He takes Tylenol as needed for his discomfort. He denies any fevers or chills. Allergies No Known Allergies Allergy (Verified 01/24/24 08:55) Medication List - Last Reconciled 01/24/24 by Jose Antonio Acuna MD acetaminophen 650 mg (2 x 325 mg) PO Q6H PRN 30 days lisinopril-hydrochlorothiazide 20-12.5 mg 1 tab PO BEDTIME walker Folding front wheeled walker PFSH Medical History (Updated 09/12/23 @ 14:22 by Jose Antonio Acuna MD) Right knee pain Seborrheic dermatitis Osteoarthritis Lipoma of torso HTN (hypertension) Actinic keratoses Surgical History Hx of right knee surgery (~1999) Social History Household Members: Family Housing: House Are you a primary care team coordinator scheduler to a significant other at home: No Do you presently have visiting nurse or other home services: No Alcohol intake: current Alcohol intake frequency: a few times a month Alcohol type: beer Patient Tobacco Use Status: Never used Tobacco Substance Use Type: Marijuana service: No Current occupational status: employed 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 Physical Exam Vital Signs: BMI result Body Mass Index 24.8 Const Other: Well-nourished well-developed very friendly male awake alert and oriented x3 in no acute distress Extrem Other: Bilateral lower extremity examination shows good capillary refill, no skin lesions noted, normal sensation light touch Right knee examination shows that the surgical incision is well healed, no erythema, full active extension and flexion to 120 degrees, his patella tracks well Results Reviewed Results Reviewed: X-rays of the patient's right knee taken today show a total knee arthroplasty in good position with no signs of loosening, no acute bony abnormalities Assessment & Plan Assessment & Plan (1) Right knee pain: Code(s): M25.561 - Pain in right knee Category: Medical Plan Mr. Landa continues to do very well after undergoing right total knee replacement surgery on 07/31/2023. He will continue with his physical therapy exercises. He does know to take antibiotics before any dental work. He will contact me prior to his annual follow-up appointment should any questions or concerns arise. Feel free to call me at any time should questions regarding his orthopedic management arise. I spent 22 minutes in reviewing the patient's records and imaging studies, seeing the patient and documenting in the medical record. Orders: Orders XR knee RT 3V 01/24/24 M25.561 - Pain in right knee Coding Level of Care Code Est Pt Level 3 (52948) Complex EM visit Add On G2211 Diagnoses Right knee pain M25.561
== END 2024-01-24 09:12 | disposition home or self-care (01) ==
PROVIDERS: PCP Family Medicine; Visit Provider Orthopaedic Surgery
DX: M25.561 Pain in right knee (principal)
CPT/HCPCS: 99213; G2211

== ENCOUNTER 2024-07-24 08:49 | Outpatient (AMB) | payer MEDICARE, SELFPAY ==
[2024-07-24 09:04] VITALS: BMI 24.8
--- NOTE | 2024-07-24 09:04 | A.OFFVIS_ITS ---
Vital Signs 07/24/24 09:04 Height 5 ft 11 in Weight 178 lb BMI 24.8 Intake Visit Reasons: OV-Rt TKA 07/31/23-follow up, Right shoulder pain and weakness Intake Note: Arash is a 69 year old male who presents for follow up after undergoing right total knee replacement surgery on 07/31/2023. Patient reports he completed formal physical therapy in November. Patient reports he is doing well. He is aware he is to take antibiotics for dental work. Today the patient is most concerned with progressively worsening right shoulder pain and weakness. He describes his pain as sharp in nature. He did injure his right shoulder this past winter while removing ice from cars. He has failed the last 6 weeks of conservative treatment which has included Tylenol, anti- inflammatory medicines and physical therapy exercises. He reports weakness when lifting his right hand above shoulder height. Allergies No Known Allergies Allergy (Verified 07/24/24 09:05) Medication List - Last Reconciled 07/24/24 by Jose Antonio Acuna MD acetaminophen 650 mg (2 x 325 mg) PO Q6H PRN 30 days lisinopril-hydrochlorothiazide 20-12.5 mg 1 tab PO BEDTIME [facility] Medical History (Updated 07/25/24 @ 07:05 by Jose Antonio Acuna MD) Right knee pain Seborrheic dermatitis Osteoarthritis Lipoma of torso HTN (hypertension) Actinic keratoses Surgical History Hx of right knee surgery (~1999) Social History Household Members: Family Housing: House Are you a primary manager medicare marketing to a significant other at home: No Do you presently have visiting nurse or other home services: No Alcohol intake: current Alcohol intake frequency: a few times a month Alcohol type: beer Patient Tobacco Use Status: Never used Tobacco Substance Use Type: Marijuana service: No Current occupational status: employed 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 Physical Exam Vital Signs: BMI result Body Mass Index 24.8 Const Other: Well-nourished well-developed very friendly male awake alert and oriented x3 in no acute distress Extrem Other: Bilateral upper extremity examination shows good capillary refill, no skin lesions noted, normal sensation light touch Right shoulder examination shows slightly decreased range of motion when compared to his left shoulder, 4+ out of 5 strength with supraspinatus testing, positive impingement signs, tenderness over his acromioclavicular joint, no instability Right knee examination shows that the surgical incision is well healed, no erythema, full active extension and flexion to 115 degrees, his patella tracks well Results Reviewed Results Reviewed: X-rays of the patient's right knee taken today show a total knee arthroplasty in good position with no signs of loosening, no acute bony abnormalities Assessment & Plan Assessment & Plan (1) Rotator cuff insufficiency of right shoulder: Code(s): M25.311 - Other instability, right shoulder Category: Medical Plan Mr. Landa continues to do well after undergoing right total knee replacement surgery on 07/31/2023. He will continue with his home stretching program. Does know to take antibiotics before any dental work. The patient also has right shoulder pain and weakness due to impingement syndrome and possible rotator cuff tearing. Thus, I will send the patient for an MRI of his right shoulder for further evaluation. I will see him back once the MRI is completed to discuss the findings and treatment options. Feel free to call me at any time should questions regarding his orthopedic management arise. I spent 21 minutes in reviewing the patient's records and imaging studies, seeing the patient and documenting in the medical record. Orders: Orders XR knee RT 3V 07/24/24 M25.561 - Pain in right knee Coding Level of Care Code Est Pt Level 3 (85098) Complex EM visit Add On G2211 Diagnoses Rotator cuff insufficiency of right shoulder M25.311
== END 2024-07-24 09:21 | disposition home or self-care (01) ==
LOC: HO.HOS 08:50
PROVIDERS: PCP Family Medicine; Visit Provider Orthopaedic Surgery
DX: M25.311 Other instability, right shoulder (principal)
CPT/HCPCS: 99213; G2211

== ENCOUNTER → 2024-07-24 08:50 | Outpatient (BNV) | payer MEDICARE, SELFPAY | PROVIDERS: Visit Provider Radiology Diagnostic Radiology | DX: M25.561 Pain in right knee (principal) | CPT/HCPCS: 73562 ==

== ENCOUNTER 2024-07-24 09:24 | Outpatient (REF) | payer MEDICARE, SELFPAY ==
--- NOTE | ~2024-07-24 | XR_ITS ---
CLINICAL HISTORY: M25.561 - Pain in right knee 3 view right knee Comparison: None Findings: Total arthroplasty with intact hardware. No periprosthetic lucency to suggest loosening or infection. No acute fracture or dislocation. Small suprapatellar joint effusion. Faint arterial calcifications. IMPRESSION: 1. Small joint effusion. 2. No acute fracture or dislocation. 3. No visible hardware complications. This document has been electronically signed by: Jenni Baker DO on 07/24/2024 14:32:32
== END 2024-07-24 09:25 | disposition home or self-care (01) ==
LOC: HO.HOSX 09:24
PROVIDERS: Visit Provider Orthopaedic Surgery
DX: M25.561 Pain in right knee (principal); M25.311 Other instability, right shoulder
CPT/HCPCS: 73562; 99212